=== PATIENT | male | born 1965 | race Caucasian/White ===

== ENCOUNTER 2020-07-30 15:16 | Outpatient (CLI) | payer BC, SELFPAY ==
--- NOTE | 2020-07-30 | XR_ITS ---
WS: [id number] XR KUB [id number] REASON FOR EXAM: CALCULUS OF LT URETER FINDINGS: Bowel gas pattern is unremarkable. No free air is identified. No mass or significant calcification is identified. XR/XR KUB [id number] IMPRESSION: No significant abnormality.
== END 2020-07-30 15:17 | disposition home or self-care (01) ==
PROVIDERS: PCP Internal Medicine; Visit Provider Urology
DX: N20.1 Calculus of ureter (principal)
CPT/HCPCS: 74018; 81003

== ENCOUNTER 2021-06-30 03:35 | Emergency (ER) | payer OTHER, SELFPAY ==
[2021-06-30] VITALS (9 sets, daily range): BP systolic 113–182; BP diastolic 55–96; PULSE 46–63; RESP 16–17; TEMP 36.5–36.6; O2SAT 95–100; BMI 32.3
--- NOTE | 2021-06-30 03:53 | CTR_ITS ---
PROCEDURE INFORMATION: Exam: CT Abdomen And Pelvis Without Contrast Exam date and time: 06/30/2021 3:53 AM Age: 56 years old Clinical indication: Abdominal pain; Flank; Right; Additional info: Flank pain TECHNIQUE: Imaging protocol: Computed tomography of the abdomen and pelvis without contrast. Radiation optimization: All CT scans at this facility use at least one of these dose optimization techniques: automated exposure control; mA and/or kV adjustment per patient size (includes targeted exams where dose is matched to clinical indication); or iterative reconstruction. COMPARISON: 1. CT Abdomen/Pelvis Renal [id number] 2019-06-11 11:01 2. CR XR KUB [id number] 2020-07-30 15:45 RADIATION DOSE METRICS: Total DLP (mGy-cm): 1790.68 FINDINGS: Liver: Normal. No mass. Gallbladder and bile ducts: Normal. No calcified stones. No ductal dilation. Pancreas: Normal. No ductal dilation. Spleen: Normal. No splenomegaly. Adrenal glands: Normal. No mass. Kidneys and ureters: 3 mm mm right vesicoureteral junction calculus causes mild to moderate right renal collecting system dilatation/hydronephrosis. Stomach and bowel: Unremarkable. No obstruction. No mucosal thickening. Appendix: No evidence of appendicitis. Intraperitoneal space: Unremarkable. No free air. No significant fluid collection. Vasculature: Mild to moderate aortic and iliac artery atherosclerotic calcification. Lymph nodes: Unremarkable. No enlarged lymph nodes. Urinary bladder: Unremarkable as visualized. Reproductive: Small left scrotal varicoceles. Left scrotal hydrocele, or testes within the inguinal canal. Correlate with clinical exam. Bones/joints: Unremarkable. No acute fracture. Soft tissues: Unremarkable. Other findings: Mid abdominal aortic dilatation measuring 2.3 cm with mild outpouching and laminated calcification., recommend aortic ultrasound non urgent periodic surveillance. CT/CT kidney stone [id number] IMPRESSION: 1. 3 mm mm right vesicoureteral junction calculus causes mild to moderate right renal collecting system dilatation/hydronephrosis. 2. Mid abdominal aortic dilatation measuring 2.3 cm with mild outpouching and laminated calcification., recommend aortic ultrasound non urgent periodic surveillance. 3. Small left scrotal varicoceles. Left scrotal hydrocele, or testes within the inguinal canal. Correlate with clinical exam. Radiation Dose CTDIVOL = (mGy): DLP = 1790.68 (mGy-cm)
[2021-06-30 04:03] LABS: Basophils % 0.5 %; Eosinophils # 0.2 10^3/uL (0.0-0.8); Eosinophils % 2.5 %; Hematocrit 43.6 % (42.0-52.0); Hemoglobin 14.3 g/dL (11.7-16.6); Lymphocytes # 2.3 10^3/uL (0.8-4.8); Lymphocytes % 37.8 %; Mean Corpuscular HGB Conc 32.8 g/dL (30.0-36.0); Mean Corpuscular Hemoglobin 29.1 pg (28.0-34.0); Mean Corpuscular Volume 88.6 fl (80-94); Mean Platelet Volume 10.2 fL (7.4-10.4); Monocytes # 0.5 10^3/uL (0.2-0.9); Monocytes % 8.9 %; Neutrophils # 3.04 10^3/uL (1.8-7.7); Neutrophils % 50.1 %; Nucleated Red Blood Cells % 0 %; Platelet Count 181 10^3/cmm (130-400); Red Blood Count 4.92 10^6/uL (4.1-5.3); Red Cell Distribution Width 12.9 % (12.1-15.1); White Blood Count 6.1 10^3/uL (4.0-10.0)
--- NOTE | 2021-06-30 04:08 | ED_ITS ---
Documented by User: Eduin Culp, 07/01/21 07:56 HPI - Abdominal Pain General: Chief Complaint: Abdominal Pain Stated Complaint: back pain Time Seen by Provider: 06/30/21 03:48 History of Present Illness: HPI narrative: 56-year-old male who woke up this morning to urinate. Following this, he began to experience intense right-sided back and abdominal pain. He has had bouts of nausea with heaving no fever. He has a history of kidney stones. No change in urine no diarrhea. He took 800 mg of ibuprofen at home without relief. MD elicited complaint: abdominal pain Pertinent past history: kidney stones Onset (ago): hour(s) (1) Location: RLQ and R flank Severity: severe Quality: stabbing Radiation: none Migration to: no migration Exacerbating factors: nothing Relieving factors: nothing Associated Symptoms: Reports nausea and vomiting; Denies bloating, constipation, dyspepsia, dysuria, fever(s), hematuria and hematemesis Review of Systems Const: Denies: fever(s) Card: Denies: chest pain Resp: Denies: dyspnea or productive cough GI: Reports: nausea and vomiting; Denies: hematemesis, constipation or bloating : Denies: dysuria or hematuria PFSH ED PFSH: Medical History CAD (coronary artery disease) Dyslipidemia HTN (hypertension) Left ureteral calculus Urolithiasis Surgical History Coronary angioplasty status Hx of vasectomy Family History Mother Hypertension Father Diabetes Social History Smoking and tobacco status: never smoked Alcohol intake: current Alcohol intake frequency: few times a month Marital status: Current occupational status: employed History of recent travel: No Physical Exam Const: COMMON NORMALS: patient oriented x3 GENERAL APPEARANCE: cooperative, well kempt and ill appearing HENMT: COMMON NORMALS: normocephalic HEAD & SCALP: normocephalic Eye: COMMON NORMALS: Equal, round and reactive pupils present and EOMs intact bilaterally PUPIL: Yes Equal, round and reactive pupils present Chest: COMMONS NORMALS: normal inspection of the chest Resp: COMMON NORMALS: normal respiratory effort, No use of accessory muscles and clear to auscultation bilaterally AUSCULTATION: clear to auscultation bilaterally Cardio: COMMON NORMALS: regular rhythm RATE: bradycardic RHYTHM: regular rhythm GI: COMMON NORMALS: Soft to palpation PALPATION: Yes Soft to palpation, No Tenderness to palpation present (GI) and No Guarding due to palpation present (GI) : BLADDER/KIDNEY EXAM: Yes CVA tenderness on the right Back/Pelvis: GENERAL BACK: Yes CVA tenderness CVA tenderness: right Neuro: COMMON NORMALS: patient oriented x3 Psych: APPEARANCE: Yes well kempt Course Vital Signs: Vital signs: Vital Signs Temperature 97.9 F 06/30/21 07:07 Pulse Rate 63 06/30/21 09:25 Respiratory Rate 17 06/30/21 09:25 Blood Pressure 133/62 06/30/21 09:25 Pulse Oximetry 100 06/30/21 09:25 MDM - Abdominal Pain MDM Narrative: Medical decision making narrative: Serum work-up was normal. Urinalysis is pending. CT scan shows a 3 mm UVJ stone with hydronephrosis on the right consistent with his symptoms. Given no evidence of infection on urinalysis, will allow home with symptomatic control and referral as an outpatient to urology. Lab Data: Labs: Lab Results 06/30/21 06/30/21 06/30/21 03:58 03:58 07:30 WBC 6.1 10^3/uL 10^3/ uL (4.0-10.0) RBC 4.92 10^6/uL 10^6 /uL (4.1-5.3) Hgb 14.3 g/dL g/dL (11.7-16.6) Hct 43.6 % % (42.0-52.0) MCV 88.6 fl fl (80-94) MCH 29.1 pg pg (28.0-34.0) MCHC 32.8 g/dL g/dL (30.0-36.0) RDW 12.9 % % (12.1-15.1) Plt Count 181 10^3/cmm 10^3 /cmm (130-400) MPV 10.2 fL fL (7.4-10.4) Neut % (Auto) 50.1 % % Lymph % (Auto) 37.8 % % [place] % (Auto) 8.9 % % Eos % (Auto) 2.5 % % Baso % (Auto) 0.5 % % Neut # (Auto) 3.04 10^3/uL 10^3 /uL (1.8-7.7) Lymph # (Auto) 2.3 10^3/uL 10^3/ uL (0.8-4.8) [place] # (Auto) 0.5 10^3/uL 10^3/ uL (0.2-0.9) Eos # (Auto) 0.2 10^3/uL 10^3/ uL (0.0-0.8) Baso # (Auto) 0.0 10^3/uL 10^3/ uL (0.0-0.1) Nucleated RBC % (a uto) 0 % % Nucleated RBCs # 0.0 /100WBC /100W BC Sodium 139 mmol/L mmol/L (136-145) Potassium 3.8 mmol/L mmol/L (3.5-5.1) Chloride 102 mmol/L mmol/L (98-107) Carbon Dioxide 27 mmol/L mmol/L (22-29) Anion Gap 13.8 (5-19) BUN 19 mg/dL mg/dL (6-20) Creatinine 1.1 mg/dL mg/dL (0.7-1.2) GFR Calculation 69.5 mL/min L mL/ min (90-130) Glucose 134 mg/dL H mg/dL (65-115) Calculated Osmolal ity 292 mOsm/kg mOsm/ kg (285-295) Calcium 9.2 mg/dL mg/dL (8.5-10.5) Total Bilirubin 0.3 mg/dL mg/dL (0.15-1.2) AST 27 U/L U/L (0-40) ALT 36 U/L U/L (0-41) Alkaline Phosphata se 47 IU/L IU/L (40-130) C-Reactive Protein 0.5 mg/L mg/L (0.0-4.9) Total Protein 7.0 g/dL g/dL (6.6-8.7) Albumin 4.5 g/dL g/dL (3.5-5.2) Globulin 2.5 g/dL g/dL (1.3-4.6) Lipase 32 U/L U/L (13-60) Urine Color Yellow (Yellow) Urine Appearance Clear (CLEAR) Urine pH 5 (5-7) Ur Specific Gravit y 1.025 (1.005-1.030) Urine Protein Neg (Negative) Urine Glucose (UA) Norm (Normal) Urine Ketones Negative (Negative) Urine Blood 3+ H (Negative) Urine Nitrate Negative (Negative) Urine Bilirubin Neg (Negative) Urine Urobilinogen Norm mg/dL mg/dL (Negative) Ur Leukocyte Jess ase Negative (Negative) Urine RBC 5-10 /hpf H /hpf (0-2) Urine WBC 0-4 /hpf H /hpf (0-5) Ur Squamous Epith Cells None /hpf /hpf (0-5) Amorphous Sediment 1+ /hpf /hpf Urine Bacteria 1+ /hpf H /hpf (NONE) Hyaline Casts 0-4 /lpf H /lpf Urine Mucus Trace /hpf /hpf Discharge Plan Discharge Patient Disposition: Home Clinical Impression: Ureterolithiasis Condition: Stable Prescriptions: New Zofran 4 mg tablet 4 mg PO Q6H PRN (Reason: nausea and vomiting) Qty: 10 RF: 0 Percocet 7.5-325 mg tablet 1 tab PO Q6H PRN (Reason: pain) Qty: 10 RF: 0 Flomax 0.4 mg capsule 0.4 mg PO DAILY Qty: 10 RF: 0 No Action montelukast [Singulair] 10 mg tablet 10 mg PO DAILY RF: 0 atorvastatin 20 mg tablet 20 mg PO DAILY RF: 0 aspirin [Adult Aspirin Regimen] 81 mg tablet,delayed release (DR/EC) 81 mg PO DAILY RF: 0 levalbuterol tartrate [Xopenex HFA] 45 mcg/actuation HFA aerosol inhaler 2 inh INHALATION Q6H RF: 0 sertraline [Zoloft] 100 mg tablet 100 mg PO DAILY RF: 0 bupropion HCl [Wellbutrin SR] 100 mg tablet sustained-release 12 hr 100 mg PO DAILY RF: 0 lisinopril 20 mg tablet 20 mg PO DAILY RF: 0 metoprolol succinate 25 mg tablet extended release 24 hr 12.5 mg PO DAILY RF: 0 Discharge Orders: Discharge ED (Routine); Ordered 11/08/21 Ordered By: Reid Santana Referrals: Kae Linares MD [Primary Care Provider] - Mejia Maya MD [Physician] - 1-3 days Discharge Diet: Advance as tolerated Discharge Activity: Increase activity as tolerated Patient Instructions: Kidney Stones (ED), Opioid Safety Activity Restrictions/Additional Instructions: Return for fever greater than 100, worsening pain despite treatment, vomiting liquids or medications, other concerning symptoms. Call the urology clinic later this morning for an appointment this week. Coding Level of Care Code ED Transformation Manager for Chg Fwd Exam Comprehensive Documented by User: Reid Santana, 06/30/21 09:11 HPI - Abdominal Pain General: Chief Complaint: Abdominal Pain Stated Complaint: back pain Time Seen by Provider: 06/30/21 03:48 PFSH ED PFSH: Medical History CAD (coronary artery disease) Dyslipidemia HTN (hypertension) Left ureteral calculus Urolithiasis Surgical History Coronary angioplasty status Hx of vasectomy Family History Mother Hypertension Father Diabetes Social History Smoking and tobacco status: never smoked Alcohol intake: current Alcohol intake frequency: few times a month Marital status: Current occupational status: employed History of recent travel: No Course Vital Signs: Vital signs: Vital Signs Temperature 97.9 F 06/30/21 07:07 Pulse Rate 63 06/30/21 09:25 Respiratory Rate 17 06/30/21 09:25 Blood Pressure 133/62 06/30/21 09:25 Pulse Oximetry 100 06/30/21 09:25 MDM - Abdominal Pain MDM Narrative: Medical decision making narrative: Urine reviewed. Discharge home as per Dr. Culp's orders. Strain urine pain medications tamsulosin follow- up with urology return if has worsening problems. Lab Data: Labs: Lab Results 06/30/21 06/30/21 06/30/21 03:58 03:58 07:30 WBC 6.1 10^3/uL 10^3/ uL (4.0-10.0) RBC 4.92 10^6/uL 10^6 /uL (4.1-5.3) Hgb 14.3 g/dL g/dL (11.7-16.6) Hct 43.6 % % (42.0-52.0) MCV 88.6 fl fl (80-94) MCH 29.1 pg pg (28.0-34.0) MCHC 32.8 g/dL g/dL (30.0-36.0) RDW 12.9 % % (12.1-15.1) Plt Count 181 10^3/cmm 10^3 /cmm (130-400) MPV 10.2 fL fL (7.4-10.4) Neut % (Auto) 50.1 % % Lymph % (Auto) 37.8 % % [place] % (Auto) 8.9 % % Eos % (Auto) 2.5 % % Baso % (Auto) 0.5 % % Neut # (Auto) 3.04 10^3/uL 10^3 /uL (1.8-7.7) Lymph # (Auto) 2.3 10^3/uL 10^3/ uL (0.8-4.8) [place] # (Auto) 0.5 10^3/uL 10^3/ uL (0.2-0.9) Eos # (Auto) 0.2 10^3/uL 10^3/ uL (0.0-0.8) Baso # (Auto) 0.0 10^3/uL 10^3/ uL (0.0-0.1) Nucleated RBC % (a uto) 0 % % Nucleated RBCs # 0.0 /100WBC /100W BC Sodium 139 mmol/L mmol/L (136-145) Potassium 3.8 mmol/L mmol/L (3.5-5.1) Chloride 102 mmol/L mmol/L (98-107) Carbon Dioxide 27 mmol/L mmol/L (22-29) Anion Gap 13.8 (5-19) BUN 19 mg/dL mg/dL (6-20) Creatinine 1.1 mg/dL mg/dL (0.7-1.2) GFR Calculation 69.5 mL/min L mL/ min (90-130) Glucose 134 mg/dL H mg/dL (65-115) Calculated Osmolal ity 292 mOsm/kg mOsm/ kg (285-295) Calcium 9.2 mg/dL mg/dL (8.5-10.5) Total Bilirubin 0.3 mg/dL mg/dL (0.15-1.2) AST 27 U/L U/L (0-40) ALT 36 U/L U/L (0-41) Alkaline Phosphata se 47 IU/L IU/L (40-130) C-Reactive Protein 0.5 mg/L mg/L (0.0-4.9) Total Protein 7.0 g/dL g/dL (6.6-8.7) Albumin 4.5 g/dL g/dL (3.5-5.2) Globulin 2.5 g/dL g/dL (1.3-4.6) Lipase 32 U/L U/L (13-60) Urine Color Yellow (Yellow) Urine Appearance Clear (CLEAR) Urine pH 5 (5-7) Ur Specific Gravit y 1.025 (1.005-1.030) Urine Protein Neg (Negative) Urine Glucose (UA) Norm (Normal) Urine Ketones Negative (Negative) Urine Blood 3+ H (Negative) Urine Nitrate Negative (Negative) Urine Bilirubin Neg (Negative) Urine Urobilinogen Norm mg/dL mg/dL (Negative) Ur Leukocyte Jess ase Negative (Negative) Urine RBC 5-10 /hpf H /hpf (0-2) Urine WBC 0-4 /hpf H /hpf (0-5) Ur Squamous Epith Cells None /hpf /hpf (0-5) Amorphous Sediment 1+ /hpf /hpf Urine Bacteria 1+ /hpf H /hpf (NONE) Hyaline Casts 0-4 /lpf H /lpf Urine Mucus Trace /hpf /hpf Discharge Plan Discharge Patient Disposition: Home Clinical Impression: Ureterolithiasis Condition: Stable Prescriptions: New Zofran 4 mg tablet 4 mg PO Q6H PRN (Reason: nausea and vomiting) Qty: 10 RF: 0 Percocet 7.5-325 mg tablet 1 tab PO Q6H PRN (Reason: pain) Qty: 10 RF: 0 Flomax 0.4 mg capsule 0.4 mg PO DAILY Qty: 10 RF: 0 No Action montelukast [Singulair] 10 mg tablet 10 mg PO DAILY RF: 0 atorvastatin 20 mg tablet 20 mg PO DAILY RF: 0 aspirin [Adult Aspirin Regimen] 81 mg tablet,delayed release (DR/EC) 81 mg PO DAILY RF: 0 levalbuterol tartrate [Xopenex HFA] 45 mcg/actuation HFA aerosol inhaler 2 inh INHALATION Q6H RF: 0 sertraline [Zoloft] 100 mg tablet 100 mg PO DAILY RF: 0 bupropion HCl [Wellbutrin SR] 100 mg tablet sustained-release 12 hr 100 mg PO DAILY RF: 0 lisinopril 20 mg tablet 20 mg PO DAILY RF: 0 metoprolol succinate 25 mg tablet extended release 24 hr 12.5 mg PO DAILY RF: 0 Discharge Orders: Discharge ED (Routine); Ordered 06/30/21 Ordered By: Reid Santana Referrals: Kae Linares MD [Primary Care Provider] - Mejia Maya MD [Physician] - 1-3 days Discharge Diet: Advance as tolerated Discharge Activity: Increase activity as tolerated Patient Instructions: Kidney Stones (ED), Opioid Safety Activity Restrictions/Additional Instructions: Return for fever greater than 100, worsening pain despite treatment, vomiting liquids or medications, other concerning symptoms. Call the urology clinic later this morning for an appointment this week. Coding Level of Care Code ED Transformation Manager for Starr Fwd Exam Comprehensive
[2021-06-30] MEDS: HYDROmorphone 1 mg/mL INJ 1 mL IVP ×2 (04:09→05:24)
[2021-06-30] MEDS: ondansetron 2 mg/ML SDV 2 mL 4 MG IVP (04:10)
[2021-06-30] MEDS: sodium chloride 0.9% 1,000 ML 999 ML IV ×2 (04:10→07:42)
[2021-06-30 04:30] LABS: Alanine Aminotransferase 36 U/L (0-41); Albumin Level 4.5 g/dL (3.5-5.2); Alkaline Phosphatase 47 IU/L (40-130); Anion Gap 13.8 (5-19); Aspartate Amino Transferase 27 U/L (0-40); Blood Urea Nitrogen 19 mg/dL (6-20); C Reactive Protein 0.5 mg/L (0.0-4.9); Calcium 9.2 mg/dL (8.5-10.5); Carbon Dioxide 27 mmol/L (22-29); Chloride 102 mmol/L (98-107); Globulin 2.5 g/dL (1.3-4.6); Glomerular Filtration Rate 69.5 mL/min (90-130); Glucose 134 mg/dL (65-115); Lipase 32 U/L (13-60); Osmolality Calculated 292 mOsm/kg (285-295); Potassium 3.8 mmol/L (3.5-5.1); Sodium 139 mmol/L (136-145); Total Bilirubin 0.3 mg/dL (0.15-1.2)
[2021-06-30] MEDS: HYDROmorphone 1 mg/mL INJ 1 mL 0.5 MG IVP (05:07)
[2021-06-30] MEDS: ketorolac 30 mg/mL INJ 15 MG IVP ×2 (05:07→05:25)
[2021-06-30] MEDS: lidocaine 2% Urojet 20 mL TOPICAL (07:26)
[2021-06-30 07:57] LABS: Add Urine Microscopic? YES; Bilirubin Urine Neg (Negative); Blood Urine 3+ (Negative); Glucose Urine UA Norm (Normal); Ketones Urine Negative (Negative); Leukocyte Esterase Urine Negative (Negative); Nitrate Urine Negative (Negative); Protein Urine Neg (Negative); Specific Gravity, Urine 1.025 (1.005-1.030); Urine Appearance Clear (CLEAR); Urine Color Yellow (Yellow); Urobilinogen Urine Norm (Negative); pH Urine 5 (5-7)
[2021-06-30 07:59] LABS: Amorphous Sediment Urine 1+ /hpf; Bacteria Urine 1+ /hpf; Mucus Urine TRACE /hpf; WBC Urine 0-4 /hpf (0-5)
[2021-06-30 08:00] LABS: Add Urine Culture? No; Hyaline Casts Urine 0-4 /lpf
== END 2021-06-30 09:27 | disposition home or self-care (01) ==
PROVIDERS: Emergency Provider Emergency Medicine; PCP Internal Medicine
DX: N20.1 Calculus of ureter (principal); Z87.442 Personal history of urinary calculi; Z79.82 Long term (current) use of aspirin; I25.10 Atherosclerotic heart disease of native coronary artery without angina pectoris; I10 Essential (primary) hypertension
CPT/HCPCS: 74176; 80053; 81001; 83690; 85025; 86140; 96361; 96374; 96375; 96376; 99284; J1170; J1885; J2405; J7030

== ENCOUNTER 2021-12-24 14:38 | Outpatient (CLI) | payer OTHER, SELFPAY ==
--- NOTE | 2021-12-24 14:59 | XR_ITS ---
WS: [id number] KUB, AP view, 12/24/2021. Clinical Data: NEPHROLITHIASIS Comparison: KUB, 07/30/2020. Findings: No abnormal intraabdominal masses or calcifications are seen. There is no dilatated small bowel or ev idence of obstruction. There is a moderate amount of fecal material throughout the colon. The bladder is partly full. XR/XR KUB [id number] Impression: Negative KUB.
== END 2021-12-24 14:39 | disposition home or self-care (01) ==
PROVIDERS: PCP Internal Medicine; Visit Provider Internal Medicine
DX: N20.0 Calculus of kidney (principal)
CPT/HCPCS: 74018

== ENCOUNTER 2022-02-04 20:19 | Emergency (ER) | payer OTHER, SELFPAY ==
[2022-02-04 20:43] VITALS: BP 125/77; PULSE 64; RESP 16; TEMP 36.7; O2SAT 98
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
[2022-02-04] MEDS: tetanus-dipt-pertussis 0.5 mL SDV IM (21:18)
[2022-02-04] MEDS: azithromycin 250 mg Tablet 500 MG PO (21:18)
== END 2022-02-04 21:27 | disposition home or self-care (01) ==
PROVIDERS: Emergency Provider Nurse Practitioner Family; PCP Internal Medicine
DX: S01.511A Laceration without foreign body of lip, initial encounter (principal); V19.3XXA Pedal cyclist (driver) (passenger) injured in unspecified nontraffic accident, initial encounter; Y93.55 Activity, bike riding; Z23 Encounter for immunization
CPT/HCPCS: 12011; 90471; 90715; 99283; Q0144

== ENCOUNTER 2022-07-28 14:46 | Outpatient (CLI) | payer OTHER, SELFPAY ==
--- NOTE | 2022-07-28 15:06 | XR_ITS ---
WS: [id number] KUB, AP view, 07/28/2022 Clinical Data: Urolithiasis Comparison: KUB, 12/24/2021. Findings: No abnormal intraabdominal masses or calcifications are seen. There is no dilatated small bowel or ev idence of obstruction. There is a moderate amount of fecal material throughout the colon. XR/XR KUB [id number] Impression: Negative KUB.
== END 2022-07-28 14:47 | disposition home or self-care (01) ==
LOC: RAD 14:50
PROVIDERS: PCP Internal Medicine; Visit Provider Urology
DX: N20.9 Urinary calculus, unspecified (principal)
CPT/HCPCS: 74018; 81003

== ENCOUNTER 2022-08-14 09:30 | Outpatient (RCR) | payer OTHER, SELFPAY ==
--- NOTE | 2022-08-12 10:15 | MR_ITS ---
WS: [id number] MRI HEAD WITHOUT CONTRAST TECHNIQUE: Sagittal T1, T2 axial, T2 axial FLAIR, axial and coronal T1 images, axial susceptibility w eighted imaging, axial diffusion weighted images, and coronal T2 images were obtained. CLINICAL INFORMATION: I25.10 - Atherosclerotic heart disease of [place] coronary... COMPARISON: MRI 07/02/11 FINDINGS: No evidence of restricted diffusion to suggest acute ischemia. Ventricular system and basal cisterns are patent. No suspicious intracranial signal abnormalities. Normal egan-white differentiation. Radha l posterior fossa. Normal vascular flow voids at the skull base. No extra-axial fluid collections. On e or 2 tiny foci of T2 hyperintensity in the RIGHT frontal white matter unchanged since 2010 of doubt ful clinical significance, but can be seen with migraine headaches. No evidence of mass or mass effec t. Mild mucosal thickening in the paranasal sinuses. Mastoid air cells are well aerated. No hemosiderin on the susceptibly weighted images. Normal optic chiasm and pituitary infundibulum. Te mporal lobes and hippocampal formations are normal in appearance. Normal posterior nasopharynx. Normal parapharyngeal fat. Previous described hemangioma in the LEFT frontal periventricular white matter is well seen today wit hout gadolinium enhancement. No other suspicious intracranial signal abnormalities. MR/MR head wo con* [id number] IMPRESSION: 1. No evidence of restricted diffusion to suggest acute ischemia. 2. No suspicious intracranial signal abnormalities. Normal egan-white differen tiation. 3. One or 2 tiny foci of T2 hyperintensity in the RIGHT frontal white matter u nchanged since 2010 of doubtful clinical significance but can be seen with migr sneha headaches. 4. Normal optic chiasm and pituitary infundibulum. 5. No other suspicious findings.
--- NOTE | 2022-08-13 | MR_ITS ---
WS: [id number] MRI CERVICAL SPINE NONCONTRAST TECHNIQUE: Sagittal T1, T2 and STIR imaging. Axial T2, gradient, and fiesta imaging. CLINICAL INFORMATION: CERVICALGIA COMPARISON: MRI FINDINGS: Straightening of the normal cervical lordosis. Disc bulging worse at C3-C4 C4-C5 C5-C6 and C6-C7. Dis c space narrowing at C5-C6 and C6-C7 has progressed. Small central disc protrusions at C5-C6 and C6-C7 progressed from previous. Shallow central protrusion C4-C5 slightly progressed compared to previous. Cord signal is normal. Inc idental benign hemangioma T2. Cord signal is normal. No high-grade central canal stenosis. Overall pr ogressed spondylitic changes since 2011. Normal visualized vertebral artery flow voids. C2-C3: Mild facet arthropathy. Spinal canal and foramen are patent. C3-C4: Tiny shallow central protrusion. Slight contact of the cervical cord. No significant central c anal stenosis. Mild to moderate RIGHT and no LEFT foraminal narrowing. Mild facet arthropathy. C4-C5: Shallow central disc protrusion. Slight contact of the cervical cord. Mild facet arthropathy. Spinal canal and foramen are patent. C5-C6: RIGHT pericentral disc osteophyte protrusion with slight indentation RIGHT ventral cervical co rd. Moderate RIGHT and no significant LEFT foraminal narrowing. Mild facet arthropathy. Uncovertebral joint hypertrophy. C6-C7: Disc osteophyte complex with endplate ridging. Moderate to severe LEFT and moderate RIGHT bony foraminal narrowing. Mild facet arthropathy with uncovertebral joint hypertrophy. C7-T1: Mild LEFT and no RIGHT foraminal narrowing. Spinal canal is patent. Visualized brain stem structures: Normal. Prevertebral soft tissues: Normal. MR/MR cervical spin wo con* [id number] IMPRESSION: 1. Straightening of the normal cervical lordosis. Small disc protrusions at C4 -C5 C5-C6 and C6-C7 progressed compared to 2011. Cord signal is normal. 2. Disc osteophyte complex RIGHT C5-C6 with slight indentation RIGHT ventral c ervical cord. Spinal canal is patent. 3. Mild to moderate RIGHT C3-C4 bony foraminal narrowing, moderate RIGHT C5-C6 , moderate to severe LEFT C6-C7 and moderate RIGHT C6-C7. Mild LEFT C7-T1 bony foraminal narrowing.
--- NOTE | 2022-08-13 11:45 | MR_ITS ---
WS: [id number] MRA HEAD TECHNIQUE: Axial 3-D TOF images obtained with axial images and axial, sagittal, and coronal 2-D refor matted images. CLINICAL INFORMATION: G43.909 - Migraine, unspecified, not intractable, without... COMPARISON: MRA 2011 FINDINGS: Distal vertebral arteries are patent. Basilar artery is patent. Normal vascularity to the FINAL [employer] territo ry bilaterally. Both ICAs are patent at the skull base. Normal vascularity to the PRINCESS and MCA territories bilaterally . No evidence of proximal flow limiting stenosis or aneurysm. Patent anterior communicating artery. MR/MR angio head wo con [id number] IMPRESSION: Normal intracranial MRA. No significant changes since 2011.
== END 2022-08-14 23:59 | disposition home or self-care (01) ==
LOC: RAD 09:30
PROVIDERS: PCP Internal Medicine; Visit Provider Specialist
DX: G43.909 Migraine, unspecified, not intractable, without status migrainosus (principal); I25.10 Atherosclerotic heart disease of native coronary artery without angina pectoris; R29.818 Other symptoms and signs involving the nervous system; R29.90 Unspecified symptoms and signs involving the nervous system
CPT/HCPCS: 70544; 70551; 72141

== ENCOUNTER 2022-10-20 07:37 | Outpatient (CLI) | payer OTHER, SELFPAY ==
--- NOTE | 2022-10-20 | ECG_ITS ---
[facility] Test Date: 2022-10-20 Pat Name: Cisco Mathews Department: Room: Gender: Male Electrical Design Engineer: Jeanette RosalesMeaghan : 1965 Requested By: Franc Nixon Order Number: [id number] Eula MD: Franc Nixon M.D. Interpretive Statements NAME OF STUDY: EXERCISE SESTAMIBI STRESS TEST INDICATION: [Chest Pain, ] EXERCISE DATA: The patient was exercised by Ryan protocol. Baseline heart rate was 55 beats per minute. Baseline blood pressure was 155/93 millimeters of mercury. Target heart rate was 140 beats per minute. Maximum heart rate achieved was 151, which was 107% of the target heart rate. Maximum blood pressure was 244/100 millimeters of mercury. Total exercise time was 13 minutes 5 seconds. Maximum METs achieved was 17. The reason for ending the test was completion of the protocol. The patient complained of shortness of breath during the stress test, which then resolved at the end of the test. ELECTROCARDIOGRAM: BASELINE: Showed sinus rhythm, normal axis, no significant ST-T changes at the baseline noted. [] EXERCISE: At the peak exercise level, [] No significant ST-T changes suggestive of ischemia noted. [] RECOVERY: During the recovery period, heart rate dropped appropriately. No significant ST-T changes in the recovery suggestive of ischemia noted. [] CONCLUSION: 1. Exercise capacity excellent 2. Heart rate response was appropriate. 3. Blood pressure response was hypertensive 4. Symptoms not suggestive of ischemia. 5. Electrocardiogram portion of the stress test was not suggestive of ischemia. 6. Nuclear scan will be documented separately. Electronically Signed On 10-24-2022 18:57:20 [employer] by Franc Nixon M.D. [id number]
[2022-10-20 08:04] VITALS: BMI 30.8
--- NOTE | 2022-10-20 08:07 | NMCV_ITS ---
NM raffi perf SPECT r/s* [id number] Cisco Mathews Age: 57 Gender: M : 1965 Exam Date: 10/20/2022 08:46 Ordering Phys: Franc Nixon M.D ([email or web address]) Technologist: ROD Montanez Exam Location: [facility] [place] Indications: CHEST PAIN STRESS TEST [facility] IMAGE PROTOCOL Rest/Stress 1 Exercise Day Radiopharmaceutical Dose (mCi) Administration Site Administered by Rest: Tc-99m 10.6 IV ROD Romero Sestamibi Stress:Tc-99m 32.5 IV ROD Romero Sestamielsie Rest: 20-Oct-2022 60 Discovery 630 Stress: 20-Oct-2022 15 Discovery 630 Radiopharmaceutical was injected at 85 % maximum heart rate. Images obtained in supine and prone position. SPECT RESULTS Technical Quality: Excellent Raw Data Analysis: Normal Image Corrections: No attenuation or motion correction applied Summed Stress Score: 2 Summed Rest Score: 7 Summed Difference Score: 0 PERFUSION FINDINGS There is a medium sized area of reduced radiotracer uptake at rest images that improves on stress imaging. This is consistent with attenuation artifact. No reversible perfusion defect is noted. No evidence of ischemia seen FUNCTIONAL RESULTS (calculated via Gated SPECT) Stress Image LV EF (%): 64 Stress EDV (mL):114 TID: 0.83 Stress ESV (mL):41 FUNCTIONAL FINDINGS: There is normal left ventricular systolic function. IMPRESSIONS 1. Normal myocardial perfusion imaging with no evidence of ischemia. No evidence of significant ischemia noted 2. LV systolic function is normal Franc Nixon MD (Electronically Signed) Final Date: 20 October 2022 16:19 S
[2022-10-20 10:40] VITALS: BP 157/86; PULSE 85
== END 2022-10-20 07:38 | disposition home or self-care (01) ==
PROVIDERS: PCP Internal Medicine; Visit Provider Internal Medicine
DX: R07.9 Chest pain, unspecified (principal)
CPT/HCPCS: 36415; 78452; 93017; A9500

== ENCOUNTER 2023-11-17 08:47 | Outpatient (CLI) | payer OTHER, SELFPAY ==
--- NOTE | 2023-11-17 08:58 | XR_ITS ---
WS: [id number] Exam: XR chest 2V* 09000 Date/Time of Exam: 11/17/2023 9:00 AM Reason For Exam: MULTIPLE FRACTURES OF RIBS Comparison 07/25/2012. The lungs are fully expanded. There is hyperinflation. Normal cardiomediastinal silhouette. Trace LEF T pleural effusion. Nondisplaced anterior LEFT sixth rib fracture. Questionable nondisplaced fracture s of the LEFT fifth and seventh ribs also. Remaining bony structures are unremarkable. IMPRESSION: 1. Pulmonary hyperinflation. 2. Trace LEFT basal pleural effusion. 3. Nondisplaced anterior LEFT sixth rib fracture. Questionable nondisplaced fractures of the LEFT fif th and seventh ribs also.
== END 2023-11-17 08:48 | disposition home or self-care (01) ==
LOC: RAD 08:55
PROVIDERS: PCP Internal Medicine; Visit Provider Internal Medicine
DX: S22.32XA Fracture of one rib, left side, initial encounter for closed fracture (principal); X58.XXXA Exposure to other specified factors, initial encounter; J90 Pleural effusion, not elsewhere classified
CPT/HCPCS: 71046

== ENCOUNTER 2024-11-21 15:33 | Outpatient (CLI) | payer OTHER, SELFPAY ==
--- NOTE | 2024-11-21 15:37 | XR_ITS ---
WS: [id number] XR shoulder LT min 2V* [id number] REASON FOR EXAM: LEFT SHOULDER PAIN FINDINGS: No fracture or focal bone lesion. Mild narrowing of the acromioclavicular joint space. Moderate osteophytosis of the superior distal clavicle. Deformity and irregularity of the acromial process. Glenohumeral space not optimally visualized. There appears to be mild narrowing. There is mild to moderate subchondral sclerosis of the glenoid. There is moderate sclerosis and cystic change in the greater biceps tuberosity. No soft tissue abnormality. 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 Mild osteoarthritis in the glenohumeral joint. Moderate rotator cuff tendon arthropathy.
== END 2024-11-21 15:34 | disposition home or self-care (01) ==
PROVIDERS: PCP Internal Medicine; Visit Provider Nurse Practitioner Family
DX: M19.012 Primary osteoarthritis, left shoulder (principal); M25.712 Osteophyte, left shoulder; R93.7 Abnormal findings on diagnostic imaging of other parts of musculoskeletal system
CPT/HCPCS: 73030

== ENCOUNTER 2024-11-30 12:50 | Outpatient (CLI) | payer OTHER, SELFPAY ==
--- NOTE | 2024-11-30 12:58 | MR_ITS ---
WS: [id number] MRI LEFT SHOULDER HISTORY: PAIN IN LEFT SHOULDER COMPARISON: 05/12/2012 TECHNIQUE: Multiplanar sequences of the shoulder joint are submitted. Moderate AC joint arthropathy. Osteophytic ridging of the distal clavicle and acromion. Minimal subacromial impingement. There is small amount of fluid in the subacromial subdeltoid bursa. No os acromiale. Normal position of the biceps tendon. Normal position of the humeral head. Moderate size insertion site of the distal supraspinatus tendon. Interstitial extension of tear. There is fluid noted along the supraspinatus tendon over the humeral head. Similar findings noted on the prior study. Insertion site tear involves predominantly the articular surface. Abnormal signal in the supraspinatus tendon. Intermediate signal and tendinopathy. Suspected partial articular surface tear of the distal supraspinatus. Increasing signal abnormality distally since 2011. Infraspinatus appears intact. No muscle atrophy or edema. Normal coracohumeral ligament. No labral tear. Intrasubstance degeneration of the superior labrum. MR/MR shoulder LT wo con* [id number] IMPRESSION: 1. Moderate AC joint arthropathy. 2. Moderate size insertion site at the distal supraspinatus tendon. Tear exten ds interstitial into the tendon along the superior humeral head. 3. Increasing tendinopathy in the distal subscapularis tendon. Additional see cular surface tearing distally. 4. Normal coracohumeral ligament. 5. No labral tear. Intrasubstance degeneration in the superior labrum.
== END 2024-11-30 12:51 | disposition home or self-care (01) ==
LOC: RAD 12:51
PROVIDERS: PCP Internal Medicine; Visit Provider Nurse Practitioner Family
DX: M19.012 Primary osteoarthritis, left shoulder (principal); M75.102 Unspecified rotator cuff tear or rupture of left shoulder, not specified as traumatic; M67.814 Other specified disorders of tendon, left shoulder; R93.7 Abnormal findings on diagnostic imaging of other parts of musculoskeletal system; M25.712 Osteophyte, left shoulder
CPT/HCPCS: 73221

== ENCOUNTER 2025-03-13 07:53 | Outpatient (CLI) | payer OTHER, SELFPAY ==
--- NOTE | 2025-03-13 08:00 | MR_ITS ---
WS: [id number] MRI LEFT SHOULDER NONCONTRAST TECHNIQUE: Sagittal T2, coronal T1, T2 and proton density imaging. Axial gradient PDE imaging. CLINICAL INFORMATION: left shoulder injury COMPARISON: MRI 11/30/2024 FINDINGS: Moderate to advanced degenerative arthritis of the AC joint with fluid and edema appears progressed compared to previous. Moderate narrowing of the subacromial space appears progressed. Associated fluid and edema at the AC joint. New high- grade tear of the infraspinatus with intrasubstance edema extending into the myotendinous junction. Tendon retraction to the level of the glenohumeral joint. Tear appears complete or nearly complete. Chronic thinning of the supraspinatus appears progressed. Tendinopathy with interstitial tears in the supraspinatus. Progressed and new interstitial tears with marked thinning of the supraspinatus tendon. Moderate degenerative narrowing of the glenohumeral articulation. Biceps tendon appears intact in the bicipital groove. Intra-articular biceps tendon appears intact. Mild subchondral cystic change involving the greater tuberosity. Normal bone marrow signal in the glenoid. Diffuse soft tissue edema about the rotator cuff is new from previous likely due to trauma and inflammation. MR/MR shoulder LT wo con* [id number] IMPRESSION: 1. Moderate to advanced degenerative arthritis AC joint with fluid and edema. Moderate narrowing of the subacromial space appears progressed. 2. New high-grade tear of the infraspinatus with tendon laxity at the myotendi nous junction and partial retraction to the level of the glenohumeral joint. Th is is new from previous. 3. Chronic thinning of the supraspinatus with tendinopathy and new/progressed high-grade tears compared to the prior studies. No tendon retraction. Marked th inning of the residual supraspinatus tendon has progressed. 4. Subscapularis tendon appears intact. 5. Biceps tendon appears intact. Intra-articular biceps tendon is normal. 6. Diffuse soft tissue edema about the rotator cuff is new from previous presu mably due to recent trauma and inflammation. 7. Normal bone marrow signal in the humerus and glenoid. No visualized fractur es. 8. Biceps labral anchor appears intact.
== END 2025-03-13 07:54 | disposition home or self-care (01) ==
LOC: RAD 07:54
PROVIDERS: PCP Internal Medicine; Visit Provider Student in an Organized Health Care Education/Training Program
DX: M75.102 Unspecified rotator cuff tear or rupture of left shoulder, not specified as traumatic (principal); M75.42 Impingement syndrome of left shoulder; M19.012 Primary osteoarthritis, left shoulder; M24.212 Disorder of ligament, left shoulder
CPT/HCPCS: 73221

== ENCOUNTER 2025-04-26 10:44 | Day surgery (SDC) | payer OTHER, SELFPAY ==
[2025-04-26] VITALS (9 sets, daily range): BP systolic 129–168; BP diastolic 88–105; PULSE 65–73; RESP 16–18; TEMP 36.2–36.3; O2SAT 95–99; BMI 29.4
--- NOTE | 2025-04-26 11:24 | ECG_ITS ---
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 Measurements Intervals [place] Rate: 63 P: 49 OR: 210 QRS: 1 QRSD: 87 T: 58 QT: 394 QTc: 404 Interpretive Statements SINUS RHYTHM WITH FIRST DEGREE AV BLOCK No previous ECG available for comparison Electronically Signed On 04-27-2025 20:40:56 CDT by Lenny Jeffrey M.D. [id number]
[2025-04-26] MEDS: acetaminophen 1,000 MG/100 ML PIGGYBACK 400 MG IV (11:53)
--- NOTE | 2025-04-26 11:53 | W.PM.OPSFHP ---
Same Day Surgery H&P Indication for Procedure/HPI DATE OF PROCEDURE: April 26, 2025 CHIEF COMPLAINT/INDICATIONFOR SURGICAL PROCEDURE: Left shoulder AC joint arthritis, rotator cuff tear, rotator cuff impingement, biceps tendinitis PREOP DIAGNOSIS: Left shoulder AC joint arthritis, rotator cuff tear, rotator cuff impingeme PLANNED PROCEDURE: Operation Date: 04/26/25 12:20 Proposed Procedures p Arthroscopic Shoulder Subacromial Decomp(Left) - Basil Freeman DO s Arthroscopic Distal Clavicle Resection Arthroscopic AC Joint Resection(Left) - Basil Freeman DO s rotator cuff debridement versus repair(Left) - Basil Freeman DO s possible biceps tenotomy versus tenodesis(Left) - Basil Freeman DO Medications/Allergies* Home Medications ?Medication ?Instructions ?Recorded ?Confirmed ?Type aspirin 81 mg tablet,delayed 81 mg PO DAILY 06/05/20 04/25/25 History release (Adult Aspirin Regimen) atorvastatin 20 mg tablet 20 mg PO DAILY 06/05/20 04/25/25 History lisinopril 20 mg tablet 20 mg PO DAILY 06/05/20 04/25/25 History montelukast 10 mg tablet 10 mg PO DAILY 07/30/20 04/25/25 History (Singulair) metoprolol succinate 25 mg 25 mg PO DAILY 06/01/22 04/25/25 History tablet,extended release 24 hr levalbuterol tartrate 45 2 inh inhalation Q6H PRN Wheezing 08/10/22 04/25/25 History mcg/actuation aerosol inhaler (Xopenex HFA) bupropion HCl 150 mg 24 hr tablet, 150 mg PO DAILY 04/25/25 04/25/25 History extended release Allergies/Adverse Reactions Allergy/AdvReac Type Severity Reaction Status Date / Time hydrocodone Allergy ADR-Nausea Verified 04/25/25 14:13 Penicillins Allergy Unknown Verified 04/25/25 14:13 Current Medications: Generic Name Dose Route Start Last Admin Trade Name Freq PRN Reason Stop Dose Admin Sodium Chloride 1,000 mls @ 30 mls/hr 04/26/25 11:00 04/26/25 11:44 Sodium Chloride 0.9% IV 04/27/25 10:59 30 mls/hr .Q24H TRAY Administration Pertinent History/Comorbid Conditions* Medical History (Updated 03/25/25 @ 09:05 by Basil Freeman DO) Asthma Urolithiasis Left ureteral calculus Dyslipidemia HTN (hypertension) CAD (coronary artery disease) Surgical History (Updated 02/09/22 @ 16:25 by Madeleine Ha DO) H/O arthroscopic knee surgery Hx of vasectomy Coronary angioplasty status Family History (Updated 07/25/20 @ 14:40 by MARK Ku) Father, at age 63 Diabetes Father Hypertension Mother Social History Smoking and tobacco/nicotine status: never used tobacco/nicotine Alcohol intake: current Alcohol intake frequency: few times a month Substance/Drug Use: never Marital status: Current occupational status: employed Pertinent Exam Findings alert, oriented x 3, operative site marked and procedure specific exam findings Please refer to detailed orthopedic examination on 03/21/2025 listed below: left Shoulder Exam: -Normal Cervical spine ROM, No pain -Negative Spurling's -TTP over AC joint, lateral and anterior shoulder -No TTP posterior shoulder -4 out of 5 weakness on ER elbows at the side -4 out of 5 weakness with IR -Positive Hawkin's impingement -Positive Reagan's -Positive Speed's -Positive crossover arm Neer's test Recommendations Risks and benefits of procedure reviewed and Patient/family agree to proceed Surgery/Procedure today Other Plans: Plan to proceed to the OR today for left shoulder diagnostic and surgical arthroscopy with subacromial decompression, AC joint resection, rotator cuff debridement versus repair, biceps tenotomy versus tenodesis. Patient understands incidence of the procedure the risk benefits complication alternatives surgical nonsurgical treatment options. Through shared decision making patient elects proceed with with surgical intervention at this time. All questions have been answered at this time Coding Level of Care Code Acute Code for Chg Fwd
[2025-04-26 13:00] LABS: Anion Gap 15.7 (5-19); Blood Urea Nitrogen 17 mg/dL (6-20); Calcium 9.8 mg/dL (8.5-10.5); Carbon Dioxide 23 mmol/L (22-29); Chloride 101 mmol/L (98-107); Creatinine Clr Calc Pharmacy 91.1187; Glucose 99 mg/dL (65-115); Osmolality Calculated 282 mOsm/kg (285-295); Potassium 4.7 mmol/L (3.5-5.1); Sodium 135 mmol/L (136-145)
[2025-04-26] MEDS: midazolam 1 mg/mL INJ 2 mL 2 MG IVP (13:01)
--- NOTE | 2025-04-26 13:10 | ANES.PREANE2 ---
Pre-Anesthetic Assessment Height/Weight: Height 1.78 m Weight 92.986 kg Temp Pulse Resp BP Pulse Ox O2 Del Method 97.3 F L 67 18 159/105 95 Room Air 04/26/25 11:47 04/26/25 11:47 04/26/25 11:47 04/26/25 11:47 04/26/25 11:47 04/26/25 11:47 Preop Diagnosis: Left shoulder AC joint arthritis, rotator cuff tear, rotator cuff impingeme Operation Date: 04/26/25 12:20 Proposed Procedures p Arthroscopic Shoulder Subacromial Decomp(Left) - Basil Porteratt, DO s Arthroscopic Distal Clavicle Resection Arthroscopic AC Joint Resection(Left) - Basil Porteratt, DO s rotator cuff debridement versus repair(Left) - Basil Freeman, DO s possible biceps tenotomy versus tenodesis(Left) - Basil Freeman, DO Familial anesthetic complications: none Was Beta Elizabeth taken within 24 hours: Yes Was Clonidine taken within 24 hours: N/A Last intake: Intake Last Liquid Date 04/25/25 Last Liquid Time 19:00 Last Solid Date 04/25/25 Last Solid Time 19:00 Social No alcohol and No tobacco Exam alert, oriented x 3, clear to auscultation bilaterally and regular rate & rhythm Airway Mallampati: Class II Dentition: full CV/HEM Coronary Artery Disease (stents) and Hypertension able to achieve > 4 METS Anesthetic Plan ASA status: 3 Anesthesia: General and Regional (specify below) Risk of > 500 ml blood loss (7ml/kg in children): No Medications/Allergies Home Medications ?Medication ?Instructions ?Recorded ?Confirmed ?Last Taken ?Type aspirin 81 mg tablet,delayed 81 mg PO DAILY 06/05/20 04/25/25 04/25/25 History release (Adult Aspirin Regimen) atorvastatin 20 mg tablet 20 mg PO DAILY 06/05/20 04/25/25 04/25/25 History lisinopril 20 mg tablet 20 mg PO DAILY 06/05/20 04/25/25 04/25/25 History montelukast 10 mg tablet 10 mg PO DAILY 07/30/20 04/25/25 Unknown History (Singulair) metoprolol succinate 25 mg 25 mg PO DAILY 06/01/22 04/25/25 04/25/25 History tablet,extended release 24 hr levalbuterol tartrate 45 2 inh inhalation Q6H PRN Wheezing 08/10/22 04/25/25 Unknown History mcg/actuation aerosol inhaler (Xopenex HFA) bupropion HCl 150 mg 24 hr tablet, 150 mg PO DAILY 04/25/25 04/25/25 04/25/25 History extended release Allergies Allergy/AdvReac Type Severity Reaction Status Date / Time hydrocodone Allergy ADR-Nausea Verified 04/25/25 14:13 Penicillins Allergy Unknown Verified 04/25/25 14:13 Current Medications Generic Name Dose Route Start Last Admin Trade Name Freq PRN Reason Stop Dose Admin Sodium Chloride 1,000 mls @ 30 mls/hr 04/26/25 11:00 04/26/25 11:44 Sodium Chloride 0.9% IV 04/27/25 10:59 30 mls/hr .Q24H TRAY Administration Midazolam HCl 2 mg 04/26/25 10:54 04/26/25 13:01 Midazolam 1 Mg/Ml Inj 2 Ml IVP 2 mg Q5M PRN Administration Preop Anxiety PFSH Anesthesia Medical History (Updated 03/25/25 @ 09:05 by Basil Freeamn DO) Asthma Urolithiasis Left ureteral calculus Dyslipidemia HTN (hypertension) CAD (coronary artery disease) Surgical History H/O arthroscopic knee surgery Hx of vasectomy Coronary angioplasty status Family History Mother Hypertension Father , at age 63 Diabetes Social History Smoking and tobacco/nicotine status: never used tobacco/nicotine Alcohol intake: current Alcohol intake frequency: few times a month Substance/Drug Use: never Marital status: Current occupational status: employed Data Anesthesia 04/26/25 11:42 BMP 04/26/25 11:42 Sodium 135 L Potassium 4.7 Chloride 101 Carbon Dioxide 23 BUN 17 Creatinine 1.0 Glucose 99 Calcium 9.8 Cardiac Studies: Sestamibi Stress Test (Cardiology) 10/20/22 Anesthesia Procedures Nerve Block Nerve Block 1: Main Anesthesia: general anesthesia Time Out Performed: Yes Consent: requested by attending/covering physician, from patient, from other, risks and benefits reviewed and patient agrees to proceed Nerve block location: interscalene (L) Anesthesia monitors applied: pulse oximetry, EKG, BP cuff and oxygen Nerve block position: semi sitting Anesthetic Used: ropivicaine 0.5% (20 ml) and with decadron (4 mg) Ultrasound used to: recognize landmarks, visualize and ID brachial plexus, in supraclavicular region and visualize and ID interscalene groove Nerve Stimulator Used?: No Interscalene/Femoral BLK: 2 stimuplex 22 g needle used for position and inplane approach, visualize local anesthetic spread and no vascular puncture identified Injection: neg aspiration of heme Patient Tolerated Procedure: well Complications: none
--- NOTE | 2025-04-26 13:12 | PC.NURSE ---
timeout performed by NOVA @ 1300. left shoulder block performed by NOVA using ultrasound guidance 20 ml of ropivicaine injected. patient tolerated procedure well
--- NOTE | 2025-04-26 16:00 | PM.OP ---
Operative Report Date of procedure: April 26, 2025 Surgeon: Basil Freeman DO Eligibility Services Representative: Harvey Freeman PA-C: PA was necessary for assistance in this case with shoulder positioning to execute the procedure, assistance with instrumentation, as well as implant fixation for rotator cuff repair and biceps tenodesis , assist with wound closure and dressing application. Procedure: Preoperative diagnosis: Left shoulder AC joint arthritis, rotator cuff tear, rotator cuff impingement, biceps tendinitis Post-op diagnosis:? Left?shoulder?labral tearing Left?shoulder?biceps tendon tear Left?shoulder?rotator cuff tear Left?shoulder?AC joint arthritis Left?shoulder?subacromial bursitis/impingement Left shoulder glenohumeral joint chondromalacia Left shoulder subscapularis tendon tear Procedure done: Left?shoulder?diagnostic and surgical arthroscopy with arthroscopic rotator cuff repair(large) Left?shoulder?diagnostic and surgical arthroscopy biceps tenodesis Left shoulder diagnostic and surgical arthroscopy with glenohumeral joint chondroplasty Left?shoulder?diagnostic and surgical arthroscopy labral debridement Left?shoulder?diagnostic and surgical arthroscopy acromioclavicular joint resection Left?shoulder?diagnostic and surgical arthroscopy subacromial decompression (acromioplasty and bursectomy) Left shoulder diagnostic and surgical arthroscopy with subscapularis tendon repair Surgeon: Basil Freeman DO Estimated blood loss: [10]mL IV fluids: See anesthesia record Implants: Arthrex 4.75 loop and tack bicep tenodesis. Arthrex 4.75 double row speed bridge repair kit Arthrex suture -fiber link Complications: None Condition: stable Disposition: same day Brief History: Patient been seen and worked up in the outpatient setting for Left?shoulder?pain.? Pt had an MRI which showed findings below.? Patient's failed conservative treatment and has weakness.? We talked about treatment options far as nonoperative and operative intervention..? We talked about risk benefits complication alternatives surgical nonsurgical treatment options.? Understanding risk of surgery pt agrees to proceed with surgical intervention.? All questions have been answered at this time.? Patient elects proceed with surgery and consent obtained in preoperative holding area for left shoulder diagnostic and surgical arthroscopy with subacromial decompression, AC joint resection, rotator cuff debridement versus repair, biceps tenotomy versus tenodesis. MR/MR shoulder LT wo con* [id number] IMPRESSION: 1. Moderate to advanced degenerative arthritis AC joint with fluid and edema. Moderate narrowing of the subacromial space appears progressed. 2. New high-grade tear of the infraspinatus with tendon laxity at the myotendinous junction and partial retraction to the level of the glenohumeral joint. This is new from previous. 3. Chronic thinning of the supraspinatus with tendinopathy and new/progressed high-grade tears compared to the prior studies. No tendon retraction. Marked thinning of the residual supraspinatus tendon has progressed. 4. Subscapularis tendon appears intact. 5. Biceps tendon appears intact. Intra-articular biceps tendon is normal. 6. Diffuse soft tissue edema about the rotator cuff is new from previous presumably due to recent trauma and inflammation. 7. Normal bone marrow signal in the humerus and glenoid. No visualized fractures. 8. Biceps labral anchor appears intact. Procedure: Patient seen evaluated in the preoperative holding area.? Consent reviewed and signed with patient.? Once again reviewed patient's MRI results as well as? planned surgical intervention.? Correct extremity marked.? Patient seen evaluated by anesthesia department received regional anesthesia.? Once ready for surgery was taken back to the operative suite.? Patient then subsequently underwent anesthesia per the anesthesia department was transported onto the OR table.? Patient was then placed into a lateral decubitus position with a beanbag and was appropriately secured to the bed.? All bony prominences well-padded.? Patient then had the Left upper extremity was then prepped and draped in standard orthopedic fashion.? Patient received appropriate preoperative antibiotics.? Final timeout performed. The Left upper extremity was then held in hanging from traction utilizing sterile technique.? Next started with standard diagnostic and surgical arthroscopy with posterior portal position introduced arthroscope into the glenohumeral joint.? Visualized the glenohumeral joint I then introduced a spinal needle within the rotator cuff interval to confirm appropriate anterior portal placement.? Once this was confirmed I then made my small incision and then introduced my arthroscopic shaver into the glenohumeral joint.? After flushing the joint fluid, was clearly evident patient had biceps tendon tearing as well as Superior labral tear. Patient had appreciable unstable biceps anchor most pronounced in the superior labrum. Given there appears to be healthy intra-articular tendon plan was for an intra-articular biceps tenodesis at the superior portion as it enters the intertubercular groove. Thermal wand introduced into the rotator interval. I then release of the rotator interval to have appropriate visualization and the ability to perform biceps tenodesis. At this point in time I did inspect the subscapularis tendon which had an upper border tear plan was to incorporate this into the loop and tack biceps tenodesis anchor. At this point I established a purple passport cannula which was introduced. Next I performed an Arthrex loop and tack biceps tenodesis. Passer was then made around the tendon luggage tag stitch around and then thru the tendon. I then utilized a thermal wand to release the biceps tendon at the anchor to perform with tenotomy. At this point in time I then subsequently utilized a blunt probe to release any adhesions on the anterior and posterior aspects of the subscapularis tendon. At this point in time I then subsequently loaded an Arthrex fiber link suture to a arthroscopic scorpion suture passer and then under direct visualization utilize a fiber link with a pulse of the upper border subscapularis tendon tear creating a luggage tag and then subsequently once more through the tendon again and had excellent purchase of the subscapularis tendon I then subsequently loaded both this suture as well as the bicep tenodesis suture onto an Arthrex 4.75 swivel lock suture anchor. A punch was then placed in appropriate position at the entry point into the intertubercular groove just adjacent to the subscapularis tendon insertion. Punch was then introduced to the appropriate depth. The suture loaded on the swivel lock was then advanced held under appropriate tension and swivel lock anchor was then advanced and had excellent fixation. Excess suture was then cut biceps tenodesis and subscapularis tendon repair was complete. I then utilized a thermal wand to seal the edges of the superior labrum. ?Next there was significant labral tearing at biceps anchor and circumferential.? ? I then subsequently utilized a a arthroscopic shaver and thermal wand to perform a labral debridement.? This point time I then visualized the glenohumeral joint.? The glenohumeral joint was found to have grade 2? chondromalacia throughout. I did utilize sterile arm arthroscopic shaver to perform gentle glenohumeral joint chondroplasty. Axillary pouch was free of loose bodies from viewing the posterior portal.? Next a visualized the rotator cuff superiorly and there was found to be a large of the supraspinatus and subtle laxity into the infraspinatus tendon.? This was retracted to the level of the glenohumeral joint/glenoid. I utilized a spinal needle to maria guadalupe this location.? ?This completed my work within the glenohumeral joint all fluid was suctioned free of the joint.? ?Next I reintroduced the arthroscope posteriorly.? And went to the subacromial space.? I established my lateral working portal at the site of which my spinal needle was marking of the rotator cuff tear.? Thermal wand was then introduced laterally and then I subsequently performed extensive bursectomy of the subacromial space.? Patient had a large anterior bone spur.? At this point time I proceeded with my AC joint resection thermal wand was used and track to the anterior edge of the acromion and then tracked all the way to the AC joint.? Once identified the AC joint this was very arthritic in nature.? Thermal wand was placed anteriorly to establish appropriate plane for AC joint resection.? Once appropriate margins and anterior inferior and anterior capsule was released I then introduced arthroscopic shaver and a bur and performed AC joint resection of both the acromion to cope plane at the AC joint and a distal clavicle resection was then performed totaling 1 cm in size and was confirmed.? This completed my AC joint resection and I then introduced the arthroscopic shaver laterally while continuing to view posteriorly.? I then performed an acromioplasty to complete my subacromial decompression prior to fixing the rotator cuff tear.? Next the arthroscopic shaver was then used previous spinal needle spot that is marked the large tear in the rotator cuff this was consistent with a large full-thickness tear.? At this point in time I subsequently evaluated the rotator cuff. I subsequently utilized thermal wand to perform standard releases of any adhesions on the undersurface and superior aspects of the rotator cuff to allow appropriate mobilization I then subsequently utilized a tissue grasper and was able to confirm that this would be mobilized for a satisfactory repair. I then based off exercise decided to perform a double row speed bridge repair and had Arthrex open up the 4.75 double row speed bridge kit. At this point in time I then opened up the Arthrex power rasp and subsequently decorticated the rotator cuff footprint and prepped the rotator cuff footprint insertion site for satisfactory period. Subsequently placed a blue passport cannula for soft tissue protection. At this point I completed my bursectomy as well as cleared off the lateral ridge of the humeral head for the lateral row anchors. Once this was satisfactory and prepared for repair I then subsequently used a spinal needle to establish an ancillary portal for the medial row anchor placement spinal needle and satisfied small incision made blunt probe and subsequently utilized a punch handed and placed to medial row 4.75 swivel lock anchors which were double loaded with suture tape with plan for 4 suture passes through the rotator cuff tendon. At this point in time I then spent sequentially made 4 passes through the rotator cuff tendon with satisfactory tendon purchase from anterior to posterior. At this point in time I did pull all of the sutures and confirmed this to have good tendon excursion for repair. I then subsequently grabbed sutures 1 and 3 for the lateral and anterior anchor and then subsequently loaded a 4.75 swivel lock subsequently punched loaded the sutures then sequentially tensioned with excellent bleach boiler puller of the anterior portion of the rotator cuff tendon and then this was impacted and swivel lock was advanced and had excellent fixation and excess sutures were cut with arthroscopic suture cutters I then subsequently grabbed sutures to 4 and noted these for the posterior lateral anchor. I then subsequently punched loaded and then sequentially tensioned to satisfactory position of the rotator cuff on the posterior side and incorporated this into the infraspinatus tendon which now had good tension and then subsequently advanced a 4.75 swivel lock with satisfactory fixation and then subsequently removed excess suture with arthroscopic suture cutter. At this point in time this completed the rotator cuff repair. Repair was found to be satisfactory?shoulder?was taken through range of motion and the repair moved as a unit with no evidence of loss of fixation. ?I then switched the arthroscope to the lateral portal to confirm this tension-free repair.? I took the?shoulder?through range of motion and the rotator cuff repair was stable and moved as a unit. ?Next I then introduced the arthroscopic shaver posteriorly to complete my subacromial decompression appropriate complaining all the way up to the lateral edge of the acromion.? This completed the surgery.? All fluid was suctioned from the?shoulder.? All instruments were removed.? The lateral incision was then closed with nylon stitches.? As well as the portal sites closed with portal nylon stitches.? Xeroform 4 x 4's ABD and tape was then applied to the Left?shoulder?and was placed into a?shoulder?abduction pillow sling for rotator cuff repair.? Patient was then awakened from anesthesia and then taken back to PACU in stable condition.? Patient tolerated procedure without any issues. Disposition: Patient taken back in stable condition recovering well.? Dressings on in place clean dry and intact.? Will be nonweightbearing to the Left upper extremity.? Follow rotator cuff repair protocol.? Patient to follow-up with me in the office in 2 weeks.? Patient will receive appropriate discharge instruction as well as pain medication postoperatively.? All questions answered.? We will contact the office for any questions or concerns.
--- NOTE | 2025-04-26 16:06 | W.PM.BPON ---
Date of Procedure: [April 26, 2025] Surgeon: [Dr. Freeman DO] Framing Mechanic(s): [Harvey Freeman PA-C] Procedure(s) performed: [Left shoulder diagnostic and surgical arthroscopy Subacromial decompression AC joint resection Labral debridement Biceps tenodesis Rotator cuff repair (large)] Findings of the procedure(s): [Left shoulder subacromial bursitis, AC joint arthritis, labral partial tearing, biceps tendon tearing and full rotator cuff tear. Procedure went well as planned] Estimated blood loss: [10 mL] Specimen(s) removed: [N/A] Post-operative diagnosis: [Left shoulder subacromial bursitis, AC joint arthritis, labral partial tearing, biceps tendon tearing and full rotator cuff tear]
--- NOTE | 2025-04-26 16:08 | PM.PACU ---
PACU note Narrative: Patient is a 60-year-old male that just underwent a left shoulder diagnostic and surgical arthroscopy. Patient transferred to PACU in stable condition. Pain is well controlled. shoulder Dressing on , dry and in place. Patient's operative arm is in a shoulder immobilizer. Patient is awake and alert and able to respond to my questions accordingly. Patient's fingers are warm with good perfusion. Normal cap refill under 2 seconds. Unable to assess further range of motion in arm due to sling. Radial pulse 2+. Patient can wiggle fingers. Sensation to hand intact. Exam: awake Disposition: discharged
== END 2025-04-26 17:17 | disposition home or self-care (01) ==
PROVIDERS: Anesthesiology; PCP Internal Medicine; Visit Provider Student in an Organized Health Care Education/Training Program
PROC: (CPT 29826; principal; 2025-04-26 12:00)
PROC: (CPT 29824; 2025-04-26 12:00)
PROC: (CPT 29827; 2025-04-26 12:00)
PROC: (CPT 29827; 2025-04-26 12:00)
PROC: (CPT 29827; 2025-04-26 12:00)
PROC: (CPT 29827; 2025-04-26 12:00)
DX: S43.492A Other sprain of left shoulder joint, initial encounter (principal); S46.222A Laceration of muscle, fascia and tendon of other parts of biceps, left arm, initial encounter; S46.822A Laceration of other muscles, fascia and tendons at shoulder and upper arm level, left arm, initial encounter; X58.XXXA Exposure to other specified factors, initial encounter; M75.102 Unspecified rotator cuff tear or rupture of left shoulder, not specified as traumatic; M13.812 Other specified arthritis, left shoulder; M75.42 Impingement syndrome of left shoulder; M94.212 Chondromalacia, left shoulder; Z79.82 Long term (current) use of aspirin; J45.909 Unspecified asthma, uncomplicated; E78.5 Hyperlipidemia, unspecified; I10 Essential (primary) hypertension; I25.10 Atherosclerotic heart disease of native coronary artery without angina pectoris
CPT/HCPCS: 29827; 29828; 29826; 29822; 36415; 80048; 93005; C1713; J0131; J0169; J1100; J1885; J2250; J2405; J2704; J3010; J3490; J7030; J9999